=== PATIENT | male | born 1985 ===

== ENCOUNTER 2023-11-21 05:49 | Day surgery (SDC) | payer OTHER ==
[2023-11-21] MEDS ORDERED: MIDAZOLAM HCL/PF 5 MG/ML VIAL IV ONE (08:30)
[2023-11-21] MEDS ORDERED: DIPHENHYDRAMINE HCL 50 MG/ML VIAL 1ML IV ONE (08:30)
[2023-11-21] MEDS ORDERED: MEPERIDINE HCL/PF 50 MG/ML VIAL IV ONE (08:30)
[2023-11-21] MEDS ORDERED: PROTONIX20 MG PO (08:38)
== END 2023-11-21 10:50 | disposition home or self-care (01) ==
LOC: AMB-ENDOS 05:49
PROVIDERS: ATTEND Surgery
DX: R10.13 Epigastric pain (principal); K29.50 Unspecified chronic gastritis without bleeding; K44.9 Diaphragmatic hernia without obstruction or gangrene; Z88.0 Allergy status to penicillin; Z88.6 Allergy status to analgesic agent